=== PATIENT | male | born 1950 ===

== ENCOUNTER 2023-11-08 06:03 | Inpatient (IN) | payer MEDICARE, OTHER, SELFPAY ==
[2023-10-20 09:58] VITALS: BMI 39.5
[2023-10-20 10:31] LABS: Hematocrit 43.4 % (39.0-52.0); Mean Corp Hgb Conc. 34.6 g/dL (33.0-37.0); Mean Corpuscular Volume 95.4 fL (80.0-94.0); Platelet Count 217 10^3/uL (130-400); Red Blood Cell Count 4.55 10^6/uL (4.70-6.10); Red Cell Dist. Width 12.7 % (11.5-14.5); White Blood Cell Count 4.7 10^3/uL (4.8-10.8)
[2023-10-20 11:00] LABS: Glycohemoglobin (HgbA1c) 5.5 % (4.0-5.6)
[2023-10-20 11:09] LABS: ALT (SGPT) 51 U/L (0-50); AST (SGOT) 38 U/L (17-59); Albumin 4.5 g/dl (3.5-5.0); Alkaline Phosphatase 64 U/L (38-126); Blood Urea Nitrogen 17 mg/dl (9-20); Carbon Dioxide 29 mmol/L (22-30); Chloride 100 mmol/L (98-107); Estimated Creatinine Clearance 91 ml/min; Glucose 96 mg/dl (70-99); Potassium 4.1 mmol/L (3.5-5.1); Sodium 142 mmol/L (135-145); Total Bilirubin 0.9 mg/dl (0.2-1.3); Total Protein 6.8 g/dl (6.3-8.2); eGFR > 60.00
[2023-11-02 11:41] VITALS: BMI 39.5
[2023-11-08] VITALS (20 sets, daily range): BP systolic 110–165; BP diastolic 51–84; PULSE 76; O2SAT 97
[2023-11-08] MEDS: TYLENOL 650 MG PO ×5 (07:25→23:34)
[2023-11-08] MEDS: CELEBREX 200 MG PO (07:25)
[2023-11-08] MEDS: NORMOSOL-R/PLASMALYTE-A 1000 IV ×2 (07:35→12:53)
[2023-11-08] MEDS: ROXICODONE 5 MG PO ×3 (10:37→23:34)
--- NOTE | 2023-11-08 12:38 | PTCARENOTE ---
Pt arrived to [address] [place] [address] PACU s/p L TKR. Pt AAOx3, NV intact, IVF infusing, L knee dressing with small amount of drainage, TEDS and foot pumps in place. Pt oriented to call jose and room, bed locked and in lowest position, call jose within reach.
[2023-11-08] MEDS: CRESTOR 10 MG PO (13:33)
[2023-11-08] MEDS: BENICAR PO (13:40)
[2023-11-08] MEDS: ORETIC PO (13:40)
--- NOTE | 2023-11-08 13:44 | W.PN.ORTHO ---
Today's Communication / Plan
-
D/c when clinically stable
Assessment
.
Distal Motor Intact: Yes
Dressing:
Clean, dry and intact.
Assessment:
L knee OA s/p L TKA w/ Dr Gusman 11/08/23
DVT prophylaxis - Eliquis at modified dosing, b/l venous foot pumps
- Eliquis 5 mg PO BID to be resumed POD 3
HTN - + parameters - monitor BP
PVCs, asymptomatic - monitor on tele
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
- Eliquis as stated above
- Early ambulation as tolerated
- Plasma flow devices encouraged for outpatient use
CAROLYN, compliant w/ CPAP - monitor O2
- Continue CPAP HS
- IS
GERD - add Pepcid HS
Ambulatory dysfunction - on fall precautions
Obesity, BMI 39.4 - would benefit from Cefadroxil upon d/c
HLD
Pulm HTN
Thoracic aortic aneurysm, 3.8 cm
Childhood meningitis
Plan
.
Surgery / Date: L TKA w/ Dr Gusman 11/08/23
DVT Prophylaxis: Other (Eliquis )
Activity:
Out of bed.
PT/OT
Discharge Plan: Home w/ Outpatient PT
Subjective
.
.:
Patient resting in bed.
L knee pain -05/23.
Denies any other new significant complaints.
Vital Signs and Labs
.
Vital Signs and Labs:
Lab Results
10/20/23 10:03
10/20/23 10:03
Temp Pulse Resp BP Pulse Ox
98.6 F 63 32 117/52 96
11/08/23 09:03 11/08/23 09:45 11/08/23 09:45 11/08/23 09:45 11/08/23 09:45
Physical Exam
-
HEENT: No pallor, cyanosis, or jaundice. Throat clear.
NECK: Supple. No JVD.
RESPIRATORY: Lungs clear to auscultation.
CVS: S1, S2 normal. RRR.�
ABDOMEN: Soft, non-tender. No distension. Obese.
EXTREMITIES: Strength equal, no calf pain with palpation/dorsiflexion. Calves soft.
PLACEMENT MANAGER: AOx3. No focal deficits. pharmacy service associate grossly intact
[2023-11-08] MEDS: ROXICODONE 2.5 MG PO (14:00)
[2023-11-08] MEDS: LIDOCAINE 4% PATCH 1 PATCH TOPICAL (14:01)
[2023-11-08] MEDS: ANCEF 5 IV ×2 (17:01→23:35)
[2023-11-08] MEDS: BACTROBAN 2% OINTMENT 1 APPLIC NASAL (20:38)
[2023-11-08] MEDS: COLACE 100 MG PO (20:42)
[2023-11-08] MEDS: ELIQUIS 2.5 MG PO (20:42)
[2023-11-08] MEDS: DECADRON 4 MG PO (20:43)
[2023-11-08] MEDS: SENOKOT PO (20:43)
[2023-11-08] MEDS: PEPCID 20 MG PO (22:20)
[2023-11-09 03:00] VITALS: BP 160/82
[2023-11-09] MEDS: TYLENOL 650 MG PO ×3 (03:05→11:51)
[2023-11-09] MEDS: ROXICODONE 5 MG PO ×3 (03:38→13:00)
[2023-11-09 07:05] VITALS: BP 157/77
[2023-11-09] MEDS: VITAMIN D3 (cholecalciferol) 10 MCG PO (08:45)
[2023-11-09] MEDS: BENICAR 40 MG PO (08:47)
[2023-11-09] MEDS: ELIQUIS 2.5 MG PO (08:48)
[2023-11-09] MEDS: COLACE 100 MG PO (08:49)
[2023-11-09] MEDS: SENOKOT 17.2 MG PO (08:49)
[2023-11-09] MEDS: CRESTOR 10 MG PO (08:49)
[2023-11-09] MEDS: ORETIC 12.5 MG PO (08:49)
[2023-11-09] MEDS: DECADRON 4 MG PO (08:49)
[2023-11-09] MEDS: BACTROBAN 2% OINTMENT 1 APPLIC NASAL (08:51)
[2023-11-09] MEDS: LIDOCAINE 4% PATCH TOPICAL (08:56)
[2023-11-09 10:02] VITALS: BP 165/78; PULSE 64; O2SAT 99
[2023-11-09 10:45] VITALS: BP 163/75; PULSE 71; O2SAT 95
[2023-11-09 11:05] VITALS: BP 173/75
--- NOTE | 2023-11-09 11:50 | CM ---
Met with pt at bedside
Pt reports he lives with his in a 2 story home; 1 step to enter, 12 steps to 2nd fl - plans to stay on 1st fl x's 1 week when d/c'ed
Independent, retired, active, driving
DME - 2 rolling walkers, cane, shower chair, raised toilet seat
SNF/HH - denies past hx
Has ride at discharge
PCP - [facility]
Pharm - [facility]
Discussed IMM
Has appt for outpatient PT scheduled for Monday - needs Rx - Tina Reina aware
Plan - anticipate home with outpatient PT
--- NOTE | 2023-11-09 12:45 | W.PN.ORTHO ---
Today's Communication / Plan
-
D/c today since clinically stable, did well w/ PT and OT.
Assessment
.
Distal Motor Intact: Yes
Dressing:
Scant areas of old incisional bleeding.
Assessment:
L knee OA s/p L TKA w/ Dr Gusman 11/08/23
DVT prophylaxis - Eliquis at modified dosing, b/l venous foot pumps
- Eliquis 5 mg PO BID to be resumed POD 3
HTN - + parameters - BPs overall stable
PVCs, asymptomatic - maintaining NSR on tele
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
- Eliquis as stated above
- Early ambulation as tolerated
- Plasma flow devices HIGHLY encouraged for outpatient use -> pt will reach out to [facility] re: this upon d/c
CAROLYN, compliant w/ CPAP - O2 stable on RA
- Continue CPAP HS
- IS
GERD - added Pepcid HS
Ambulatory dysfunction - on fall precautions
Obesity, BMI 39.4 - would benefit from Cefadroxil upon d/c
Plan
.
Surgery / Date: L TKA w/ Dr Gusman 11/08/23
DVT Prophylaxis: Other (Eliquis )
Activity:
Out of bed.
PT/OT
Discharge Plan: Home w/ Outpatient PT
Subjective
.
.:
Patient resting comfortably in his chair.
L knee pain bearable w/ current pain med regimen.
Denies any new significant complaints.
Eager for potential d/c today.
Vital Signs and Labs
.
Vital Signs and Labs:
Lab Results
10/20/23 10:03
10/20/23 10:03
Temp Pulse Resp BP Pulse Ox
97.8 F 68 18 173/75 98
11/09/23 11:05 11/09/23 11:05 11/09/23 11:05 11/09/23 11:05 11/09/23 11:05
Non-invasive Hgb result: 12.0
Physical Exam
-
HEENT: No pallor, cyanosis, or jaundice. Throat clear.
NECK: Supple. No JVD.
RESPIRATORY: Lungs clear to auscultation.
CVS: S1, S2 normal. RRR.�
ABDOMEN: Soft, non-tender. No distension. Obese.
EXTREMITIES: Strength equal, no calf pain with palpation/dorsiflexion. Calves soft.
DINING SERVICE INSPECTOR: AOx3. No focal deficits. crusher feeder grossly intact
--- NOTE | 2023-11-09 12:58 | W.DS.TRANS ---
DC Summary - Floor Covering Contractor
-
Discharge Instructions:
Discharge Diagnosis/Procedures L knee OA s/p L TKA w/ Dr Gusman 11/08/23
Diet Other diet
Additional Diets Diabetic carb controlled x1 week for wound
healing/infection prevention
Activity As tolerated,With Walker
Driving Restrictions Not until seen by your Dr
Bathing Restrictions OK to Shower
Other Services PT
Wound Care Dressing to be removed 1 week post-surgery
Instructions:
Stand-Alone Forms: Total Hip/Knee Replacement D/C
Changes to Home Medications: Yes
Discharge Medications:
DC Medications w/original date entered in [employer]
apixaban 5 mg tablet (Eliquis) 5 mg PO BID Blood Clot Prevention/Tx 11/02/23
cholecalciferol (vitamin D3) 10 mcg (400 unit) capsule (Vitamin D3) 10 mcg PO DAILY Supplement 11/02/23
glucosamine sulf dipot chlr,msm,chond 550 mg-C 30 mg-pallavi 1 mg capsule (Glucosamine Chondroitin) 1 cap PO DAILY Supplement 11/02/23
multivitamin 1 tab PO DAILY Supplement 11/02/23
rosuvastatin 10 mg tablet 10 mg PO DAILY High Cholesterol 11/02/23
Saccharomyces boulardii 250 mg capsule (Florastor) 250 mg PO BID #14 caps 11/09/23
acetaminophen 500 mg tablet (Tylenol Extra Strength) 1,000 mg (2 x 500 mg) PO Q6H #60 tabs 11/09/23
apixaban 2.5 mg tablet (Eliquis) 2.5 mg PO BID #3 tabs 11/09/23
cefadroxil 500 mg capsule 500 mg PO BID #14 caps 11/09/23
dexamethasone 4 mg tablet 4 mg PO Q12H Anti-inflammatory #7 tabs 11/09/23
docusate sodium 100 mg capsule 100 mg PO BID #30 caps 11/09/23
famotidine 20 mg tablet 20 mg PO HS #30 tabs 11/09/23
olmesartan 40 mg-hydrochlorothiazide 12.5 mg tablet 1 tab PO DAILY Blood Pressure #1 tab 11/09/23
ondansetron HCl 4 mg tablet 4 mg PO Q6H PRN nausea and vomiting #30 tabs 11/09/23
oxycodone 5 mg tablet 5 - 10 mg (1 - 2 x 5 mg) PO Q6H PRN moderate-severe pain #30 tabs 11/09/23
sennosides 8.6 mg tablet (Senna Laxative) 17.2 mg (2 x 8.6 mg) PO BID #30 tabs 11/09/23
Home Medication Changes
Saccharomyces boulardii 250 mg capsule (Florastor) 250 mg PO BID #14 caps 11/09/23
acetaminophen 500 mg tablet (Tylenol Extra Strength) 1,000 mg (2 x 500 mg) PO Q6H #60 tabs 11/09/23
apixaban 2.5 mg tablet (Eliquis) 2.5 mg PO BID #3 tabs 11/09/23 - until POD 3
cefadroxil 500 mg capsule 500 mg PO BID #14 caps 11/09/23
dexamethasone 4 mg tablet 4 mg PO Q12H Anti-inflammatory #7 tabs 11/09/23
docusate sodium 100 mg capsule 100 mg PO BID #30 caps 11/09/23
famotidine 20 mg tablet 20 mg PO HS #30 tabs 11/09/23
ondansetron HCl 4 mg tablet 4 mg PO Q6H PRN nausea and vomiting #30 tabs 11/09/23
oxycodone 5 mg tablet 5 - 10 mg (1 - 2 x 5 mg) PO Q6H PRN moderate-severe pain #30 tabs 11/09/23
sennosides 8.6 mg tablet (Senna Laxative) 17.2 mg (2 x 8.6 mg) PO BID #30 tabs 11/09/23
Pending Results: No
== END 2023-11-09 13:32 | disposition home or self-care (01) | DRG 470 ==
LOC: 2 SOUTH 06:03
PROVIDERS: ADMITTING PHYSICIAN Orthopaedic Surgery; FAMILY PHYSICIAN Family Medicine; REFERRING PHYSICIAN Internal Medicine Cardiovascular Disease
PROC: 0SRD069 Replacement of Left Knee Joint with Oxidized Zirconium on Polyethylene Synthetic Substitute, Cemented, Open Approach (ICD-10-PCS; 2023-11-08)
DX: M17.12 Unilateral primary osteoarthritis, left knee (principal); E66.9 Obesity, unspecified; Z68.39 Body mass index [BMI] 39.0-39.9, adult; K21.9 Gastro-esophageal reflux disease without esophagitis; E78.5 Hyperlipidemia, unspecified; I27.20 Pulmonary hypertension, unspecified
CPT/HCPCS: 36415; 73560; 80053; 83036; 85027; 87070; 97110; 97116; 97162; 97166; 97535; C1713; C1776